=== PATIENT | male | born 1950 | race Caucasian/White ===

== ENCOUNTER → 2017-08-27 | Outpatient (CLI) | payer OTHER | LOC: CIMAGING 13:49 | PROVIDERS: ATTEND Specialist | DX: N20.0 Calculus of kidney (principal); I70.0 Atherosclerosis of aorta | CPT/HCPCS: 74176-PO ==

== ENCOUNTER 2017-09-24 07:02 | Day surgery (SDC) | payer OTHER ==
[2017-09-24] MEDS ORDERED: NS 1,000 ML IV SCH (07:30)
[2017-09-24] MEDS ORDERED: MEPERIDINE 25 MG/ML SYR IVP PRN ×2 (07:30→12:24)
[2017-09-24] MEDS ORDERED: fentaNYL 100 MCG/2 ML INJ IVP PRN ×3 (07:30→12:24)
[2017-09-24] MEDS ORDERED: FLUMAZENIL 0.5 MG/5 ML MDV IVP PRN (07:30)
[2017-09-24] MEDS ORDERED: NALOXONE HCL 0.4 MG/ML INJ IVP PRN ×2 (07:30→12:24)
[2017-09-24] MEDS ORDERED: MIDAZOLAM 2 MG/2 ML VIAL IVP PRN (07:30)
[2017-09-24 08:16] LABS: HEMATOCRIT 42.7 % (40.0-51.0)
[2017-09-24 08:26] LABS: APTT 27.2 SEC (23.0-38.0); INR 1.17 (0.83-1.16); PROTIME(PATIENT) 15.1 SEC (12.0-15.0)
[2017-09-24] MEDS ORDERED: MIDAZOLAM 2 MG/2 ML VIAL ONE (08:55)
[2017-09-24] MEDS ORDERED: fentaNYL 100 MCG/2 ML INJ ONE (09:06)
[2017-09-24] MEDS ORDERED: ONDANSETRON 4 MG/2 ML VIAL ONE (09:06)
[2017-09-24] MEDS ORDERED: PROPOFOL/EMULSION 500 MG/50 ML BOTTLE IV ONE (09:06)
[2017-09-24] MEDS ORDERED: DEXAMETHASONE 4 MG/ML VIAL ONE ×2 (09:06)
[2017-09-24] MEDS ORDERED: REMIFENTANIL HCL 1 MG VIAL ONE (09:06)
[2017-09-24] MEDS ORDERED: LIDOCAINE 2% 100 MG/5 ML SYR ONE (09:06)
[2017-09-24] MEDS ORDERED: LIDOCAINE HCL 160 MG/4 ML LTA KIT TP ONE (09:11)
[2017-09-24] MEDS ORDERED: PHENYLEPHRINE HCL 100 MCG/ML SYR ONE (09:16)
[2017-09-24] MEDS ORDERED: MIDAZOLAM 2 MG/2 ML VIAL IVP ONE (12:23)
[2017-09-24] MEDS ORDERED: ONDANSETRON 4 MG/2 ML VIAL IVP PRN (12:24)
[2017-09-24] MEDS ORDERED: PHENYLEPHRINE HCL 100 MCG/ML SYR IVP PRN (12:24)
[2017-09-24] MEDS ORDERED: HYDROCODONE/APAP 5/325 TAB PO PRN (12:24)
[2017-09-24] MEDS ORDERED: METOCLOPRAMIDE 10 MG/2 ML VIAL IVP PRN (12:24)
[2017-09-24] MEDS ORDERED: PROMETHAZINE HCL 25 MG/ML INJ IVP PRN (12:24)
[2017-09-24] MEDS ORDERED: ALBUTEROL 3 ML DEYVIAL IH PRN (12:24)
[2017-09-24] MEDS ORDERED: LABETALOL HCL 5 MG/ML 20 ML MDV IVP PRN (12:24)
[2017-09-24] MEDS ORDERED: LR 500 ML IV PRN (12:24)
[2017-09-24] MEDS ORDERED: DEXAMETHASONE 4 MG/ML VIAL IVP PRN (12:24)
[2017-09-24] MEDS ORDERED: OXYCODONE/APAP 5/325 TAB PO PRN (12:24)
--- NOTE | 2017-09-24 12:28 | PDANEPAE ---
ANE History of Present Illness l perc neph ANE Past Medical History - Cardiovascular History Hx Hypertension: No Hx Arrhythmias: No Hx Chest Pain: No Hx Coronary Artery / Peripheral Vascular Disease: No Hx CHF / Valvular Disease: No Hx Palpitations: No - Pulmonary History Hx COPD: No Hx Asthma/Reactive Airway Disease: Yes Hx Recent Upper Respiratory Infection: No Hx Oxygen in Use at Home: Yes O2 in Use at Home (L/minute): 2 Hx Sleep Apnea: Yes Sleep Apnea Screening Result - Last Documented: Positive Pulmonary History Comment: asthma, Sleep apnea; O2 2L while sleeping - Neurologic History Hx Cerebrovascular Accident: No Hx Seizures: No Hx Dementia: No Neurologic History Comment: NEUROPATHY PETR FEET - Endocrine History Hx Diabetes: No - Renal History Hx Renal Disorders: Yes Renal History Comment: stent KIDNEY STONES - Liver History Hx Hepatic Disorders: No - Neurological & Psychiatric Hx Hx Neurological and Psychiatric Disorders: No - Cancer History Hx Cancer: No - Congenital Disorder History Hx Congenital Disorders: No - GI History Hx Gastrointestinal Disorders: Yes Gastrointestinal History Comment: CONSTIPATION W/PAIN MEDS - Other Health History Other Health History: NEG - Chronic Pain History Chronic Pain: Yes (BACK & FEET) - Surgical History Prior Surgeries: PETR JOE. MULT BACK SURGERIES. RTC R SHOULDER. R ANKLE SURG. LITHOTRIPSIES X5 ANE Review of Systems Review of Systems: - Exercise capacity METS (RN): 4 METS ANE Patient History - Allergies Allergies/Adverse Reactions: No Known Allergies Allergy (Verified 09/08/17 14:03) - Home Medications Home medications: home medication list seen and reviewed Home Medications: Calcium Carb W/Vit D [Calcium Carb W/Vit D 500/200 (*)] 500 mg PO DAILY [Last Taken 04/21/16] Cholecalciferol Vit D3 [Vitamin D3 (*)] 2,000 units PO DAILY 04/25/16 [Last Taken 04/24/16] Gabapentin [Neurontin 300 MG (*)] 600 mg PO TID 04/25/16 [Last Taken 04/25/16] HYDROmorphone HCL [Dilaudid 4 mg (*)] 8 mg PO Q4-6PRN PRN 04/25/16 [Last Taken 04/25/16] Herbals/Supplements -Info Only 1 ea PO DAILY 04/25/16 [Last Taken Unknown] Lactulose [Enulose] 20 gm PO HS 04/25/16 [Last Taken 04/22/16] Multivitamins [Multivitamin (*)] 1 each PO DAILY 04/25/16 [Last Taken 04/21/16] Naloxegol Oxalate [Movantik] 25 mg PO DAILY@06 04/25/16 [Last Taken 04/24/16] Theophylline ER/Sr [Aidan-Dur 300 MG (*)] 300 mg PO BID 04/25/16 [Last Taken ] Topiramate [Topamax 100MG (*)] 100 mg PO BID 04/25/16 [Last Taken 04/25/16] fentaNYL [Duragesic 100 MCG Patch (*)] 100 mcg TD Q48H 04/25/16 [Last Taken ] Aspirin EC [Aspirin EC 325 mg (*)] 325 mg PO DAILY 09/03/17 [Last Taken Unknown] Modafinil [Provigil] 200 mg PO DAILY 09/03/17 [Last Taken Unknown] oxyCODONE IR [Oxycodone Ir (*)] 30 mg PO TID 09/03/17 [Last Taken Unknown] - NPO status NPO Status: no food or drink >8 hours - Smoking Hx Smoking Status: Former smoker - Family Anes Hx Family Hx Anesthesia Complications: NEG ANE Labs/Vital Signs - Labs Result Diagrams: 09/24/17 08:00 - Vital Signs Blood Pressure: 129/77 Heart Rate: 89 Respiratory Rate: 6 O2 Sat (%): 97 Height: 182.88 cm Weight: 99.79 kg ANE Physical Exam - Airway Mallampati Score: Class 2 Mouth exam: poor dentition - Pulmonary Pulmonary: no respiratory distress - Cardiovascular Cardiovascular: regular rate and rhythym ANE Anesthesia Plan Anesthesia Plan: general endotracheal anesthesia
--- NOTE | 2017-09-24 12:36 | PDRADPN ---
Radiology Procedure Note Date of Procedure: 09/24/17 Radiologist: Bita Lam Anesthesiologist: Dr. Alarcon Anesthesia: GET(General Endotracheal) Pre-op Diagnosis: LT renal stones Post-op Diagnosis: LT renal stones Indication: Perc access needed for OR Procedure: double access, LT kidney Finding(s): two 8Fr perc access obtained. Inf/Abcess present in the surg proc area at time of surgery?: No Depth: Superfical (Skin SQ) EBL: Minimal Complications: None
[2017-09-24 14:07] VITALS: BP 120/64; PULSE 84; RESP 20; TEMP 96.8; O2SAT 93
== END 2017-09-24 14:05 | disposition home or self-care (01) ==
LOC: FIMAGING 07:02
PROVIDERS: ATTEND Specialist
DX: Z46.6 Encounter for fitting and adjustment of urinary device (principal); N20.0 Calculus of kidney; G47.30 Sleep apnea, unspecified; J45.909 Unspecified asthma, uncomplicated; Z87.891 Personal history of nicotine dependence
CPT/HCPCS: 50432; 99152; C1729; C1769; J0696; J1100; J2001; J2250; J2370; J2405; J2704; J3010

== ENCOUNTER 2017-09-25 06:05 | Inpatient (IN) | payer OTHER ==
--- NOTE | 2017-09-24 08:32 | PDPROPOC ---
Sedation Plan of Care Sedation Plan of Care: vital signs stable, mental status noted, patient educated of risks, benefits, alternatives, patient can tolerate sedation ASA Classification: ASA 2 Planned drugs: other (anesthesia) Mallampati Score: Class 1 Mallampati Reference Image: Patient passed 3-3-2 rule?: Yes
--- NOTE | 2017-09-24 08:34 | PDGENHP ---
History & Physical Chief Complaint: LT percutaneous nephrostomy tube placement History of Present Illness: s/p RT kidney stone removal. now with LT kidney stone. Pertinent Past, Social, Family History: n/a Relevant Physical Exam: no significant findings. labs wnl. Cardiorespiratory Assessment: rrr, cta bilateral
--- NOTE | 2017-09-24 08:55 | PDANEPAE ---
ANE History of Present Illness stones s/f L perc neph ANE Past Medical History - Cardiovascular History Hx Hypertension: No Hx Arrhythmias: No Hx Chest Pain: No Hx Coronary Artery / Peripheral Vascular Disease: No Hx CHF / Valvular Disease: No Hx Palpitations: No - Pulmonary History Hx COPD: No Hx Asthma/Reactive Airway Disease: Yes Hx Recent Upper Respiratory Infection: No Hx Oxygen in Use at Home: No Hx Sleep Apnea: Yes Sleep Apnea Screening Result - Last Documented: Positive Pulmonary History Comment: CHIKI - hasn't used CPAP x 3 yrs (lost in his move) - Neurologic History Hx Cerebrovascular Accident: No Hx Seizures: No Hx Dementia: No Neurologic History Comment: NEUROPATHY PETR FEET - Endocrine History Hx Diabetes: No - Renal History Hx Renal Disorders: Yes Renal History Comment: stent KIDNEY STONES - Liver History Hx Hepatic Disorders: No - Neurological & Psychiatric Hx Hx Neurological and Psychiatric Disorders: No Neurological / Psychiatric History Comment: neuropathy feet "now up to knees". Pain in " R butt and down back of R leg" R neuropathy worse. - Cancer History Hx Cancer: No - Congenital Disorder History Hx Congenital Disorders: No - GI History Hx Gastrointestinal Disorders: Yes Gastrointestinal History Comment: CONSTIPATION W/PAIN MEDS - Other Health History Other Health History: NEG - Chronic Pain History Chronic Pain: Yes (BACK & FEET) - Surgical History Prior Surgeries: PETR JOE. MULT BACK SURGERIES. RTC R SHOULDER. R ANKLE SURG. LITHOTRIPSIES X5 ANE Review of Systems Review of Systems: - Exercise capacity METS (RN): 4 METS ANE Patient History - Allergies Allergies/Adverse Reactions: No Known Allergies Allergy (Verified 09/08/17 14:03) - Home Medications Home medications: home medication list seen and reviewed Home Medications: Calcium Carb W/Vit D [Calcium Carb W/Vit D 500/200 (*)] 500 mg PO DAILY [Last Taken 04/21/16] Cholecalciferol Vit D3 [Vitamin D3 (*)] 2,000 units PO DAILY 04/25/16 [Last Taken 04/24/16] Gabapentin [Neurontin 300 MG (*)] 600 mg PO TID 04/25/16 [Last Taken 04/25/16] HYDROmorphone HCL [Dilaudid 4 mg (*)] 8 mg PO Q4-6PRN PRN 04/25/16 [Last Taken 04/25/16] Herbals/Supplements -Info Only 1 ea PO DAILY 04/25/16 [Last Taken Unknown] Lactulose [Enulose] 20 gm PO HS 04/25/16 [Last Taken 04/22/16] Multivitamins [Multivitamin (*)] 1 each PO DAILY 04/25/16 [Last Taken 04/21/16] Naloxegol Oxalate [Movantik] 25 mg PO DAILY@04/25/16 [Last Taken 04/24/16] Theophylline ER/Sr [Aidan-Dur 300 MG (*)] 300 mg PO BID 04/25/16 [Last Taken ] Topiramate [Topamax 100MG (*)] 100 mg PO BID 04/25/16 [Last Taken 04/25/16] fentaNYL [Duragesic 100 MCG Patch (*)] 100 mcg TD Q48H 04/25/16 [Last Taken ] Aspirin EC [Aspirin EC 325 mg (*)] 325 mg PO DAILY 09/03/17 [Last Taken Unknown] Modafinil [Provigil] 200 mg PO DAILY 09/03/17 [Last Taken Unknown] oxyCODONE IR [Oxycodone Ir (*)] 30 mg PO TID 09/03/17 [Last Taken Unknown] - NPO status NPO Status: no food or drink >8 hours - Anes Hx Anes Hx: no prior problems - Smoking Hx Smoking Status: Former smoker Marijuana use: No - Alcohol Use Alcohol Use: None - Family Anes Hx Family Anes Hx: none Family Hx Anesthesia Complications: NEG ANE Labs/Vital Signs - Labs - CBC WBC: reviewed - Vital Signs Height: 182.88 cm Weight: 99.79 kg ANE Physical Exam - Airway Neck exam: FROM Mouth exam: poor dentition - Pulmonary Pulmonary: no respiratory distress - Cardiovascular Cardiovascular: regular rate and rhythym - ASA Status ASA Status: II ANE Anesthesia Plan Anesthesia Plan: general endotracheal anesthesia (R/B/A explained and pt. agrees to proceed)
--- NOTE | 2017-09-24 11:54 | POSTANESTH ---
Post Anesthetic Evaluation Cardiovascular Status: Normal, Stable Respiratory Status: Normal, Stable Level of Consciousness/Mental Status: Can Participate in Eval Pain Control: Adequate, Prn Tx Ordered Nausea/Vomiting Control: Adequate, Prn Tx Ordered Complications Possibly Related to Anesthesia: None Noted
[~2017-09-25 06:05] MED LIST: ACETAMINOPHEN 500 MG TAB PO PRN; ALBUTEROL 3 ML DEYVIAL IH PRN; DEXAMETHASONE 4 MG/ML VIAL IVP PRN; HYDROCODONE/APAP 5/325 TAB PO PRN; IOPAMIDOL (ISOVUE-300) 100 ML BTL ONE; LABETALOL HCL 5 MG/ML 20 ML MDV IVP PRN; LR 500 ML IV PRN; MEPERIDINE 25 MG/ML SYR IVP PRN; METOCLOPRAMIDE 10 MG/2 ML VIAL IVP PRN; MIDAZOLAM 2 MG/2 ML VIAL IVP ONE; NALOXONE HCL 0.4 MG/ML INJ IVP PRN; ONDANSETRON 4 MG/2 ML VIAL IVP PRN; OXYCODONE/APAP 5/325 TAB PO PRN; PHENYLEPHRINE HCL 100 MCG/ML SYR IVP PRN; PROMETHAZINE HCL 25 MG/ML INJ IVP PRN; fentaNYL 100 MCG/2 ML INJ ONE
[2017-09-25] MEDS ORDERED: IOPAMIDOL (ISOVUE-300) 100 ML BTL ONE (07:39)
[2017-09-25] MEDS ORDERED: MINERAL OIL 10 ML VIAL ONE (07:41)
[2017-09-25] MEDS ORDERED: LR 1,000 ML IV ONE (07:42)
[2017-09-25] MEDS ORDERED: MIDAZOLAM 2 MG/2 ML VIAL IVP ONE (07:44)
--- NOTE | 2017-09-25 07:45 | PDANEPAE ---
ANE History of Present Illness left PCNL ANE Past Medical History - Cardiovascular History Hx Hypertension: No Hx Arrhythmias: No Hx Chest Pain: No Hx Coronary Artery / Peripheral Vascular Disease: No Hx CHF / Valvular Disease: No Hx Palpitations: No - Pulmonary History Hx COPD: No Hx Asthma/Reactive Airway Disease: Yes Hx Recent Upper Respiratory Infection: No Hx Oxygen in Use at Home: Yes Hx Sleep Apnea: Yes Sleep Apnea Screening Result - Last Documented: Positive Pulmonary History Comment: asthma, Sleep apnea; O2 2L while sleeping - Neurologic History Hx Cerebrovascular Accident: No Hx Seizures: No Hx Dementia: No Neurologic History Comment: NEUROPATHY PETR FEET - Endocrine History Hx Diabetes: No Obesity: yes - Renal History Hx Renal Disorders: Yes Renal History Comment: stent KIDNEY STONES - Liver History Hx Hepatic Disorders: No - Neurological & Psychiatric Hx Hx Neurological and Psychiatric Disorders: No Neurological / Psychiatric History Comment: neuropathy feet "now up to knees". Pain in " R butt and down back of R leg" R neuropathy worse. - Cancer History Hx Cancer: No - Congenital Disorder History Hx Congenital Disorders: No - GI History Hx Gastrointestinal Disorders: Yes Gastrointestinal History Comment: CONSTIPATION W/PAIN MEDS - Other Health History Other Health History: NEG - Chronic Pain History Chronic Pain: Yes (BACK & FEET) - Surgical History Prior Surgeries: PETR JOE. MULT BACK SURGERIES. RTC R SHOULDER. R ANKLE SURG. LITHOTRIPSIES X5 ANE Review of Systems Review of Systems: - Exercise capacity METS (RN): 4 METS ANE Patient History - Allergies Allergies/Adverse Reactions: No Known Allergies Allergy (Verified 09/08/17 14:03) - Home Medications Home medications: home medication list seen and reviewed Home Medications: Calcium Carb W/Vit D [Calcium Carb W/Vit D 500/200 (*)] 500 mg PO DAILY [Last Taken 09/18/17] Cholecalciferol Vit D3 [Vitamin D3 (*)] 2,000 units PO DAILY 04/25/16 [Last Taken 09/18/17] Gabapentin [Neurontin 300 MG (*)] 600 mg PO TID 04/25/16 [Last Taken 09/24/17] HYDROmorphone HCL [Dilaudid 4 mg (*)] 8 mg PO Q4-6PRN PRN 04/25/16 [Last Taken 09/25/17] Herbals/Supplements -Info Only 1 ea PO DAILY 04/25/16 [Last Taken 09/18/17] Lactulose [Enulose] 20 gm PO HS 04/25/16 [Last Taken 09/20/17] Multivitamins [Multivitamin (*)] 1 each PO DAILY 04/25/16 [Last Taken 09/18/17] Naloxegol Oxalate [Movantik] 25 mg PO DAILY@06 04/25/16 [Last Taken 09/24/17] Theophylline ER/Sr [Aidan-Dur 300 MG (*)] 300 mg PO BID 04/25/16 [Last Taken ] Topiramate [Topamax 100MG (*)] 100 mg PO BID 04/25/16 [Last Taken 09/24/17] fentaNYL [Duragesic 100 MCG Patch (*)] 100 mcg TD Q48H 04/25/16 [Last Taken ] Aspirin EC [Aspirin EC 325 mg (*)] 325 mg PO DAILY 09/03/17 [Last Taken 09/18/17 ] Modafinil [Provigil] 200 mg PO DAILY 09/03/17 [Last Taken 09/18/17] oxyCODONE IR [Oxycodone Ir (*)] 30 mg PO TID 09/03/17 [Last Taken 09/25/17] - NPO status NPO Since - Liquids (Date): 09/24/17 NPO Since - Solids (Date): 09/24/17 - Anes Hx Anes Hx: no prior problems - Smoking Hx Smoking Status: Former smoker - Alcohol Use Alcohol Use: None - Family Anes Hx Family Hx Anesthesia Complications: NEG ANE Labs/Vital Signs - Vital Signs Blood Pressure: 108/57 Heart Rate: 96 Respiratory Rate: 16 O2 Sat (%): 96 Height: 182.88 cm Weight: 99.79 kg ANE Physical Exam - Airway Neck exam: FROM Mallampati Score: Class 2 Mouth exam: poor dentition - Pulmonary Pulmonary: no respiratory distress - Cardiovascular Cardiovascular: regular rate and rhythym - ASA Status ASA Status: III ANE Anesthesia Plan Anesthesia Plan: general endotracheal anesthesia
[2017-09-25] MEDS ORDERED: fentaNYL 250 MCG/5 ML INJ ONE (07:50)
[2017-09-25] MEDS ORDERED: PROPOFOL 200 MG/20 ML VIAL ONE ×2 (07:50)
[2017-09-25] MEDS ORDERED: LIDOCAINE 2% 5 ML SDV ONE (07:57)
[2017-09-25] MEDS ORDERED: DEXAMETHASONE 4 MG/ML VIAL ONE (07:58)
[2017-09-25] MEDS ORDERED: ONDANSETRON 4 MG/2 ML VIAL ONE ×2 (07:58→12:45)
[2017-09-25] MEDS ORDERED: KETAMINE 100 MG/10 ML SYR ONE (07:58)
[2017-09-25] MEDS ORDERED: SUGAMMADEX SODIUM 200 MG/2 ML VIAL IVP ONE (07:58)
[2017-09-25] MEDS ORDERED: ROCURONIUM 100 MG/10 ML VIAL ONE (07:58)
[2017-09-25] MEDS ORDERED: HYDROmorphONE/DILAUDID 2 MG/ML INJ ONE (08:01)
[2017-09-25] MEDS ORDERED: ceFAZolin 2 GM/SWFI 20 ML SYR IVP ONE (08:29)
[2017-09-25] MEDS ORDERED: ceFAZolin 2 GM/DEXTROSE 100 ML IV ONE (08:29)
--- NOTE | 2017-09-25 08:29 | PDHPUP ---
History & Physical Update H&P update statement: This history and physical update is based on an assessment of the patient which was completed after admission or registration (within 24 hours), but prior to the surgery/procedure. H&P update: no change in patient's condition since H&P completed
[2017-09-25] MEDS ORDERED: ceFAZolin 2 GM/SWFI 2 GM/20 ML SYR IVP ONE (08:30)
[2017-09-25] MEDS ORDERED: fentaNYL 100 MCG/2 ML INJ IVP PRN (10:09)
[2017-09-25] MEDS ORDERED: LR 500 ML IV PRN (10:09)
[2017-09-25] MEDS ORDERED: DEXAMETHASONE 4 MG/ML VIAL IVP PRN (10:09)
[2017-09-25] MEDS ORDERED: HYDROmorphONE/DILAUDID 1 MG/ML INJ IVP PRN ×2 (10:09→10:57)
[2017-09-25] MEDS ORDERED: OXYCODONE/APAP 5/325 TAB PO PRN (10:09)
[2017-09-25] MEDS ORDERED: ONDANSETRON 4 MG/2 ML VIAL IVP PRN ×2 (10:09→10:57)
[2017-09-25] MEDS ORDERED: NALOXONE HCL 0.4 MG/ML INJ IVP PRN (10:09)
[2017-09-25] MEDS ORDERED: HYDROCODONE/APAP 5/325 TAB PO PRN (10:09)
[2017-09-25] MEDS ORDERED: ALBUTEROL 3 ML DEYVIAL IH PRN (10:09)
[2017-09-25] MEDS ORDERED: ACETAMINOPHEN 500 MG TAB PO PRN (10:09)
[2017-09-25] MEDS ORDERED: PROMETHAZINE HCL 25 MG/ML INJ IVP PRN (10:57)
[2017-09-25] MEDS ORDERED: fentaNYL 100 MCG/2 ML INJ ONE (11:08)
[2017-09-25] MEDS: fentaNYL 100 MCG/2 ML INJ IVP PRN ×2 (11:10→11:23)
--- NOTE | 2017-09-25 11:11 | POSTOPPROG ---
Post Op Note Date of Operation: 09/25/17 Surgeon: Dat Noguera (# [id number]) Anesthesia: GET(General Endotracheal) Pre-op Diagnosis: Left nephrolithiasis > 2.5 cm Post-op Diagnosis: Left nephrolithiasis > 2.5 cm Procedure: Left PCNL w/ fluoro guidance & holmium laser lithotripsy Findings: See op note Inf/Abcess present in the surg proc area at time of surgery?: No EBL: 50-100 (100 cc) Complications: None Drains: Nephrostomy (14 Fr. left neph. tube) Specimen(s): None
[2017-09-25] MEDS: D5W 1/2 NS 1,000 ML IV SCH (14:11)
[2017-09-25] MEDS: HYDROmorphone HCL/NS/PF 0.4 MG/2 ML SYR IVP PRN ×2 (14:11→21:24)
[2017-09-25] MEDS: GABAPENTIN 300 MG CAP PO SCH ×2 (17:02→21:27)
[2017-09-25] MEDS: oxyCODONE IR 15 MG TAB PO SCH ×2 (17:02→21:27)
[2017-09-25] MEDS: THEOPHYLLINE ER/SR 300 MG TAB (THEO-DUR) PO SCH (20:03)
[2017-09-25] MEDS: TOPIRAMATE 100 MG TAB PO SCH (20:03)
[2017-09-25] MEDS: HYDROmorphONE/DILAUDID 4 MG TAB PO PRN (20:04)
[2017-09-25] MEDS: LACTULOSE 20 GM/30 ML UDCUP PO SCH (20:05)
--- NOTE | 2017-09-25 20:59 | GOP ---
[f rep st] OPERATIVE REPORT DATE OF OPERATION: 09/25/2017 SURGEON: Dat Noguera MD ANESTHESIA: General endotracheal. PREOPERATIVE DIAGNOSIS: Large volume left nephrolithiasis, greater than 2.5 cm. POSTOPERATIVE DIAGNOSIS: Large volume left nephrolithiasis, greater than 2.5 cm. PROCEDURE PERFORMED: FINDINGS: Large volume nephrolithiasis predominantly involving the 2 separate lower pole calices. SPECIMENS: None. ESTIMATED BLOOD LOSS: Approximately 100 cc. INDICATIONS: This gentleman has significant volume left nephrolithiasis and presents for operative m anagement today. This follows left-sided nephrostomy tube placement in [facility]iology yest erday. The indications for the procedures as well as the potential risks and complications were disc ussed with the patient preoperatively. He appeared to understand, his questions were answered, and h e wished to proceed. Written informed surgical consent was thereafter obtained. DESCRIPTION OF PROCEDURE: The patient was brought to the operating room and administered general end otracheal anesthesia. He was carefully placed in the prone position after a Alexis catheter had been placed while still supine. The patient was properly positioned on the operating room table and all a ppropriate pressure points were thoroughly padded. The patient's left back was then sterilely preppe d and draped in standard fashion. Dr. Boo from Interventional Radiology then proceeded to place a balloon occlusion catheter through the midpole access and a working 34-Slovak nephroscopic sheath in through the upper pole access. I then began the percutaneous nephrostolithotomy portion of the procedure with the rigid nephroscope through the upper pole sheath. I was able to advance the nephroscope into the renal pelvis. However , the scope was not long enough to reach the lower pole where the majority of the calculi were locate d. Therefore, I switched to a flexible cystoscope and performed flexible nephroscopy. I was ultimat olman able to identify the dominant calculi in the lower pole, sitting within 2 different calices. The re was 1 large cohesive stone that was probably approximately 1.5-2 cm in diameter. I used a 365 bernard rodolfo holmium laser fiber to fragment this calculus into minute pieces. The calculus was actually adhe rent to the urothelium in the calyx within which it was contained. I was able to definiti vely treat this calculus completely as was seen visually. The other calyx, which contained the majority of the preoperatively noted calculus disease, contained probably at least 50 or more very small individual calculi. I was able to flush these from the lowe r pole calyx into the renal pelvis. Some of these calculus fragments were flushed through the nephro scopic working sheath. I then carefully examined the remainder of the collecting system with the cys toscope and was not able to identify any other significant-sized calculi. This concluded the percuta neous nephrostolithotomy portion of the procedure. I decided to place the nephroscopy tube to be maintained postoperatively through the midpole access, since the upper pole access was intercostal and would be more painful. Therefore, the balloon occlus ion catheter was deflated and removed. Under fluoroscopic guidance, I then inserted a 14-Slovak neph rostomy tube through the midpole access and deployed the pigtail properly within the renal pelvis. T his was confirmed with injection of contrast. The lock on the nephrostomy tube was activated. I the n ultimately secured it to the skin with an 0 Ethibond suture and connected it to bag drainage. A ski slope dressing was utilized to properly dress this area, followed by the application of Tegader m. I removed the working nephroscopic sheath from the upper pole. Manual pressure was placed on thi s location for hemostatic purposes for approximately 5 minutes. After doing this, 2 separate 0 Ethib ond interrupted sutures were utilized to reapproximate the skin incision at this location. This was followed by the application of antibiotic ointment, Telfa, 4 x 4's, and tape. The patient was then turned back over into the supine position. He was then awakened, extubated, the n taken to the recovery room. He tolerated the procedure well overall. PROCEDURE PERFORMED: Left-sided percutaneous nephrostolithotomy with holmium laser calculus lithotri psy and fluoroscopic guidance greater than 1 hour. COMPLICATIONS: None. DISPOSITION: He was transferred to the recovery room in stable condition being admitted overnight fo r postoperative care and routine flushing of the nephrostomy tube. Copy requested to: Ladonna Kumar /[id number]/MODL
[2017-09-25] MEDS ORDERED: NON-FORMULARY NEW DRUG (Lactulose [Enulose] 20 GM) PO SCH (21:00)
[2017-09-26] MEDS: D5W 1/2 NS 1,000 ML IV SCH ×2 (01:04→11:24)
[2017-09-26] MEDS: HYDROmorphONE/DILAUDID 4 MG TAB PO PRN ×4 (01:08→20:51)
[2017-09-26] MEDS: Naloxegol Oxalate [Movantik] 25 MG PO SCH (01:10)
[2017-09-26] MEDS: HYDROmorphone HCL/NS/PF 0.4 MG/2 ML SYR IVP PRN (04:35)
[2017-09-26 05:32] LABS: HEMATOCRIT 37.1 % (40.0-51.0); HEMOGLOBIN 11.6 g/dL (13.7-17.5); MEAN CELL HEMOGLOBIN 29.1 pg (27.9-34.1); MEAN CELL HEMOGLOBIN CONCENTR. 31.3 g/dL (32.4-36.7); RED BLOOD CELL COUNT 3.99 10^6/uL (4.40-6.38); RED CELL DISTRIBUTION WIDTH 13.8 % (11.5-15.2)
[2017-09-26 05:52] LABS: ANION GAP 7 mEq/L (8-16); CALCIUM 9.1 mg/dL (8.5-10.4); CARBON DIOXIDE 30 mEq/l (22-31); CHLORIDE 107 mEq/L (97-110); CREATININE 1.3 mg/dL (0.7-1.3); GLOMERULAR FILTRATION RATE 55; GLUCOSE 102 mg/dL (70-100); POTASSIUM 4.1 mEq/L (3.5-5.2); SODIUM 144 mEq/L (134-144)
[2017-09-26] MEDS ORDERED: NON-FORMULARY NEW DRUG (Modafinil [Provigil] 200 MG) PO SCH (09:00)
[2017-09-26] MEDS ORDERED: fentaNYL 100 MCG PATCH TD SCH (09:00)
[2017-09-26] MEDS: oxyCODONE IR 15 MG TAB PO SCH ×3 (11:28→20:50)
[2017-09-26] MEDS: GABAPENTIN 300 MG CAP PO SCH ×3 (11:30→20:50)
[2017-09-26] MEDS: MODAFINIL 100 MG TAB PO SCH (11:30)
[2017-09-26] MEDS: THEOPHYLLINE ER/SR 300 MG TAB (THEO-DUR) PO SCH ×2 (11:31→20:50)
[2017-09-26] MEDS: TOPIRAMATE 100 MG TAB PO SCH ×2 (11:31→20:50)
--- NOTE | 2017-09-26 12:27 | ASMTCMCOM ---
CM Note CM Note Notes: Anticipate pt will DC with no needs when medically ready. Date Signed: 09/26/2017 12:27 PM Electronically Signed By:Delilah Lindsey LCSW
--- NOTE | 2017-09-26 13:53 | SOAPPROG ---
SOAP Progress Note Assessment/Plan: Assessment: POD 1 s/p left PCNL - stable. Having a significant amount of pain from his left flank, which is not surprising to me considering his probable low pain tolerance and the large amount of pain medication he takes on a daily basis. Plan: 1. Ambulate, remove Alexis, buffcap IV. 2. Hopeful discharge later today, but due to pain issues he will probably not be willing to leave until at least tomorrow. 3. Continue nephrostomy tube flushing. Subjective: Complains of severe pain from his left back. Tolerating regular diet and drinking. No N/V. Objective: Vital Signs Temp Pulse Resp BP Pulse Ox 36.9 C 80 18 144/79 H 94 09/26/17 12:44 09/26/17 12:44 09/26/17 12:44 09/26/17 12:44 09/26/17 12:44 Laboratory Results 09/26/17 04:58 09/26/17 04:58 09/25/17 09/26/17 09/27/17 05:59 05:59 05:59 Intake Total 1610 Output Total 3680 Balance -2069 Physical Exam - Physical Exam General Appearance: alert, no apparent distress, obese Abdomen: non-tender, soft Male Genitalia: other (urine dark pink-tinged) Back: Other (Nephrostomy dressings dry & intact; neph. tube drainage w/ hematuria.) Extremities: non-tender Neuro/Psych: alert, normal mood/affect, oriented x 3 ICD10 Worksheet Patient Problems: Problems Problem Status Onset Kidney stone on left side Acute
--- NOTE | 2017-09-26 18:14 | SOAPPROG ---
SOAP Progress Note Assessment/Plan: Assessment: POD 1 s/p left PCNL - stable. Pain from his left flank has decreased but still has not ambulated today (refused earlier today). Plan: 1. Continue hospitalization due to immobility and pain. 2. Hopeful discharge tomorrow. 3. Prior to discharge, arrange for outpatient nephrostomy tube removal through IR for either Friday or Friday next week. Objective: Vital Signs Temp Pulse Resp BP Pulse Ox 36.7 C 79 16 130/77 H 92 09/26/17 15:33 09/26/17 15:33 09/26/17 15:33 09/26/17 15:33 09/26/17 15:33 Laboratory Results 09/26/17 04:58 09/26/17 04:58 09/25/17 09/26/17 09/27/17 05:59 05:59 05:59 Intake Total 1610 Output Total 3680 2024 Balance -2069 ICD10 Worksheet Patient Problems: Problems Problem Status Onset Kidney stone on left side Acute
[2017-09-26] MEDS: LACTULOSE 20 GM/30 ML UDCUP PO SCH (20:51)
[2017-09-27] MEDS: HYDROmorphONE/DILAUDID 4 MG TAB PO PRN ×2 (05:00→09:27)
[2017-09-27] MEDS: oxyCODONE IR 15 MG TAB PO SCH (06:35)
[2017-09-27 08:53] VITALS: RESP 18
[2017-09-27] MEDS: Naloxegol Oxalate [Movantik] 25 MG PO SCH (08:54)
[2017-09-27] MEDS: TOPIRAMATE 100 MG TAB PO SCH (09:03)
[2017-09-27] MEDS: GABAPENTIN 300 MG CAP PO SCH (09:03)
[2017-09-27] MEDS: MODAFINIL 100 MG TAB PO SCH (09:04)
[2017-09-27] MEDS: THEOPHYLLINE ER/SR 300 MG TAB (THEO-DUR) PO SCH (09:05)
[2017-09-27 12:52] VITALS: BP 142/96; PULSE 87; TEMP 98.4; O2SAT 94
--- NOTE | 2017-09-27 12:59 | SOAPPROG ---
SOAP Progress Note Assessment/Plan: Assessment: Plan: Subjective: pt w out complaint tube draining well abd soft nt nd pt want to go home and denies cp or SOB Objective: Vital Signs Temp Pulse Resp BP Pulse Ox 36.9 C 87 18 142/96 H 94 09/27/17 12:50 09/27/17 12:50 09/27/17 12:50 09/27/17 12:50 09/27/17 12:50 Laboratory Results 09/26/17 04:58 09/26/17 04:58 09/26/17 09/27/17 09/28/17 05:59 05:59 05:59 Intake Total 1610 2100 10 Output Total 3680 3775 870 Balance -2070 -1675 -860 ICD10 Worksheet Patient Problems: Problems Problem Status Onset Kidney stone on left side Acute
[2017-09-27] MEDS ORDERED: oxyCODONE IR 15 MG TAB PO SCH (14:00)
== END 2017-09-27 15:28 | disposition home or self-care (01) | DRG 661 ==
LOC: F1N 06:05 → INTOOBSV 06:05 → F1N 12:32 → OBSVTOIN 09-26 18:13
PROVIDERS: ADMIT Specialist; ATTEND Specialist
PROC: 0T777DZ Dilation of Left Ureter with Intraluminal Device, Via Natural or Artificial Opening (ICD-10-PCS; principal; 2017-09-26)
PROC: 0T9130Z Drainage of Left Kidney with Drainage Device, Percutaneous Approach (ICD-10-PCS; principal; 2017-09-26)
PROC: 0TC13ZZ Extirpation of Matter from Left Kidney, Percutaneous Approach (ICD-10-PCS; principal; 2017-09-26)
DX: N20.0 Calculus of kidney (principal); Z87.440 Personal history of urinary (tract) infections; Z87.442 Personal history of urinary calculi
CPT/HCPCS: C1725; C1729; C1758; C1769; C1894; J0690; J0696; J1100; J1170; J1644; J2001; J2250; J2370; J2405; J2704; J3010; Q9967

== ENCOUNTER → 2017-09-30 | Day surgery (SDC) | payer OTHER | END | disposition home or self-care (01) | LOC: FIMAGING 08:33 | PROVIDERS: ATTEND Specialist | PROC: 0TP5X0Z Removal of Drainage Device from Kidney, External Approach (ICD-10-PCS; principal; 2017-09-30) | DX: N20.0 Calculus of kidney (principal) ==

== ENCOUNTER → 2017-11-25 | Outpatient (CLI) | payer OTHER | LOC: CIMAGING 13:34 | PROVIDERS: ATTEND Specialist | DX: N20.0 Calculus of kidney (principal); I70.0 Atherosclerosis of aorta; I70.8 Atherosclerosis of other arteries | CPT/HCPCS: 74176-PO ==